=== PATIENT | male | born 1955 | race African-American/Black ===

== ENCOUNTER 2016-07-22 23:21 | Emergency (ER) | payer MEDICARE ==
[2016-07-23] MEDS ORDERED: FAMOTIDINE 20 MG TAB ONE (03:03)
[2016-07-23] MEDS ORDERED: OXYCODONE/APAP 5/325 TAB ONE (03:03)
[2016-07-23] MEDS ORDERED: ONDANSETRON ODT 4 MG TAB ONE (03:03)
== END 2016-07-23 05:25 | disposition home or self-care (01) ==
LOC: ER 23:21
CPT/HCPCS: 36415; 80053; 82947; 83690; 85025; 85610; 85730; 93005